=== PATIENT | female | born 1960 | race Caucasian/White ===

== ENCOUNTER 2020-06-15 12:26 | Outpatient (CLI) | payer MEDICARE, MEDICAID | END 2020-06-15 23:59 | disposition home or self-care (01) | LOC: CFH 12:26 | PROVIDERS: ATTEND Physician Assistant Surgical | DX: S99.922A Unspecified injury of left foot, initial encounter (principal); S92.315A Nondisplaced fracture of first metatarsal bone, left foot, initial encounter for closed fracture; S92.325A Nondisplaced fracture of second metatarsal bone, left foot, initial encounter for closed fracture; S92.335A Nondisplaced fracture of third metatarsal bone, left foot, initial encounter for closed fracture; S92.345A Nondisplaced fracture of fourth metatarsal bone, left foot, initial encounter for closed fracture; X58.XXXA Exposure to other specified factors, initial encounter; Y93.89 Activity, other specified; Y92.89 Other specified places as the place of occurrence of the external cause; Y99.8 Other external cause status ==

== ENCOUNTER 2020-06-25 06:49 | Day surgery (SDC) | payer MEDICARE, MEDICAID ==
[~2020-06-25] VITALS: Ht 165.1 cm; Wt 68.0 kg
[2020-06-25 07:30] VITALS: BP 128/94
[2020-06-25] MEDS ORDERED: CHLORHEXIDINE 15 ML UDC MM STA (07:35)
[2020-06-25] MEDS ORDERED: LACTATED RINGERS 1,000 ML IV SCH (07:35)
[2020-06-25] MEDS ORDERED: ALPR0.5T7 PO (07:38)
[2020-06-25] MEDS ORDERED: PARO30TA45 PO (07:38)
[2020-06-25] MEDS ORDERED: MIDAZOLAM 1 MG/ML, 2ML ONE (07:45)
[2020-06-25] MEDS ORDERED: FENTANYL PF 100 MCG/2ML ONE (07:45)
[2020-06-25] MEDS ORDERED: LIDOCAINE-MPF 2% ,5ML ONE (07:47)
[2020-06-25] MEDS ORDERED: BUPIVACAINE/PF 0.5% ONE (07:51)
[2020-06-25] MEDS ORDERED: ROPIvacaine/PF 0.2%, 100ML 550 ML (check volume) INJ ONE (10:00)
[2020-06-25] MEDS ORDERED: CEFAZOLIN 1,000 MG ONE (10:31)
[2020-06-25] MEDS ORDERED: ONDANSETRON 2MG/ML, 2ML ONE (10:31)
[2020-06-25] MEDS ORDERED: DEXAMETHASONE 4 MG/ML, 1ML ONE (10:31)
[2020-06-25] MEDS ORDERED: PROPOFOL 10 MG/ML, 20ML ONE (10:31)
[2020-06-25] MEDS ORDERED: HYDROmorphone 1 MG/ML, 1ML INJ IVPush PRN (11:00)
[2020-06-25] MEDS ORDERED: ACETAMINOPHEN 325 MG TABLET PO PRN (11:00)
[2020-06-25] MEDS ORDERED: PROMETHAZINE 25 MG/ML, 1ML IVPush PRN (11:00)
[2020-06-25] MEDS ORDERED: ALBUTEROL SULFATE 2.5 MG/3 ML NPPB PRN (11:00)
[2020-06-25] MEDS ORDERED: MEPERIDINE/PF 25MG/0.5ML IVPush PRN (11:00)
[2020-06-25] MEDS ORDERED: LABETALOL 5MG/ML, 20ML IV PRN (11:00)
[2020-06-25] MEDS ORDERED: hydrALAzine 20 MG/ML, 1ML IV PRN (11:00)
[2020-06-25] MEDS ORDERED: OXYcodone 5 MG/5 ML ORAL.SOL UDC PO PRN (11:00)
[2020-06-25] MEDS ORDERED: LORazepam 2 MG/ML, 1ML IVPush PRN (11:00)
[2020-06-25] MEDS ORDERED: FENTANYL PF 100 MCG/2ML IV PRN (11:00)
== END 2020-06-25 13:15 | disposition home or self-care (01) ==
LOC: OUT 06:49
PROVIDERS: ATTEND Orthopaedic Surgery
DX: S92.342A Displaced fracture of fourth metatarsal bone, left foot, initial encounter for closed fracture (principal); S93.325A Dislocation of tarsometatarsal joint of left foot, initial encounter; X58.XXXA Exposure to other specified factors, initial encounter; Y93.89 Activity, other specified; Y92.89 Other specified places as the place of occurrence of the external cause; Z20.828 Contact with and (suspected) exposure to other viral communicable diseases; Y99.8 Other external cause status; Z79.899 Other long term (current) drug therapy; Z72.89 Other problems related to lifestyle; F17.210 Nicotine dependence, cigarettes, uncomplicated; Z85.41 Personal history of malignant neoplasm of cervix uteri; G89.18 Other acute postprocedural pain
CPT/HCPCS: 28485; 28615; 36415; 64447; 73620; 76000; 87635; 93005; C1713; J0690; J1100; J2250; J2405; J2704; J2795; J3010; J7120